=== PATIENT | female | born 1995 | race Caucasian/White ===

== ENCOUNTER 2020-12-01 19:33 | Emergency (ER) | payer SELFPAY ==
[~2020-12-01] VITALS: Ht 167.6 cm; Wt 55.0 kg
[2020-12-01 21:40] LABS: CHLORIDE 109 mEq/L (98-107)
[2020-12-01 21:46] LABS: BASOPHILS % 0.8 % (0.0-2.0); EOSINOPHILS % 3.6 % (0.0-5.0); ETHANOL BLOOD < 10 mg/dL; LYMPHOCYTES % 27.7 % (20.0-50.0); MEAN CORPUSCULAR HEMOGLOBIN 25.3 pg (28.0-32.0); MEAN CORPUSCULAR VOLUME 81.2 fL (81.0-99.0); MEAN PLATELET VOLUME 6.6 fl (7.4-10.4); MONOCYTES % 5.8 % (2.0-8.0); NEUTROPHILS % 62.1 % (40.0-76.0); PLATELET 529 x1000/uL (130-400); RED BLOOD CELL COUNT 3.58 mill/uL (4.2-5.4)
[2020-12-01 22:32] LABS: CLARITY URINE CLEAR (CLEAR); COLOR URINE YELLOW (YELLOW); KETONES URINE NEGATIVE (NEGATIVE); LEUKOCYTE ESTERASE URINE 1+ (NEGATIVE); NITRITE URINE NEGATIVE (NEGATIVE); OCCULT BLOOD URINE NEGATIVE (NEGATIVE); PROTEIN URINE NEGATIVE (NEGATIVE); SPECIFIC GRAVITY URINE 1.019 (1.005-1.030)
[2020-12-01 22:42] LABS: *BARBITURATES SCREEN URINE NEGATIVE (NEGATIVE); *BENZODIAZEPINES SCREEN URINE NEGATIVE (NEGATIVE); METHADONE URINE SCREEN NEGATIVE (NEGATIVE); OPIATES URINE SCREEN NEGATIVE (NEGATIVE); PHENCYCLIDINE URINE SCREEN NEGATIVE (NEGATIVE)
[2020-12-01 22:43] LABS: *AMPHETAMINES SCREEN URINE PRESUMTIVE POSITIVE (NEGATIVE); *COCAINE SCREEN URINE PRESUMTIVE POSITIVE (NEGATIVE); CANNABINOID URINE SCREEN PRESUMTIVE POSITIVE (NEGATIVE)
[2020-12-02 00:30] VITALS: BP 133/81
== END 2020-12-02 00:46 | disposition home or self-care (01) ==
LOC: ER 19:33 → EDBD 19:33 → ER 12-02 00:46
DX: T50.905A Adverse effect of unspecified drugs, medicaments and biological substances, initial encounter (principal); Y92.89 Other specified places as the place of occurrence of the external cause; R45.1 Restlessness and agitation; R51.9 Headache, unspecified
CPT/HCPCS: 36415; 70486; 80053; 80305; 80307; 80320; 80329; 81003; 85025; 99285; G0480

== ENCOUNTER 2022-07-19 17:37 | Emergency (ER) | payer MEDICAID, OTHER ==
[~2022-07-19] VITALS: Ht 170.2 cm; Wt 64.0 kg
[2022-07-19 17:53] VITALS: BP 120/73
[2022-07-20] MEDS ORDERED: CIPR-263 MT (14:57)
[2022-07-20] MEDS ORDERED: DOXY150T5 MT (14:57)
[2022-07-20] MEDS ORDERED: MUPI15CR11 TP (14:58)
== END 2022-07-19 22:11 | disposition left against medical advice (07) ==
LOC: ER 17:37
DX: Z53.21 Procedure and treatment not carried out due to patient leaving prior to being seen by health care provider (principal)

== ENCOUNTER 2022-07-20 12:02 | Emergency (ER) | payer MEDICAID ==
[~2022-07-20] VITALS: Ht 172.7 cm; Wt 80.0 kg
[2022-07-20] MEDS ORDERED: CIPR-263 MT (14:57)
[2022-07-20] MEDS ORDERED: DOXY150T5 MT (14:57)
[2022-07-20] MEDS ORDERED: MUPI15CR11 TP (14:58)
[2022-07-20] MEDS ORDERED: BACITRACIN ZINC OINT UDPKT TOP ONE (15:15)
[2022-07-20 16:09] VITALS: BP 120/71
== END 2022-07-20 16:12 | disposition home or self-care (01) ==
LOC: ER 12:02
DX: T22.211A Burn of second degree of right forearm, initial encounter (principal); T24.211A Burn of second degree of right thigh, initial encounter; T31.0 Burns involving less than 10% of body surface; T79.9XXA Unspecified early complication of trauma, initial encounter; I10 Essential (primary) hypertension; X08.8XXA Exposure to other specified smoke, fire and flames, initial encounter; Y93.89 Activity, other specified; Y92.89 Other specified places as the place of occurrence of the external cause; Y99.8 Other external cause status
CPT/HCPCS: 16000; 81025; 99283